=== PATIENT | female | born 1995 | race Caucasian/White ===

== ENCOUNTER 2024-10-29 15:38 | Outpatient (CLI) | payer OTHER, SELFPAY ==
[2024-10-29 15:29] LABS: Abs Immature Grans 0.02 10^3/uL (0.0-0.06); Absolute Basophil Count 0.05 10^3/uL (0.0-0.2); Absolute Eosinophil Count 0.13 10^3/uL (0.0-0.7); Absolute Lymphocyte Count 1.96 10^3/uL (1.2-3.4); Absolute Monocyte Count 0.45 10^3/uL (0.1-0.8); Absolute Neutrophil Count 5.84 10^3/uL (1.2-6.7); Basophils % 0.6 %; Eosinophils % 1.5 %; HCT 43.7 % (36.0-46.0); HGB 14.2 g/dL (11.2-15.7); Immature Grans % 0.2 %; Lymphocytes % 23.2 %; MCH 28.8 pg (27.0-33.0); MCHC 32.5 % (32.0-36.0); MCV 89 fL (80-95); MPV 9.5 fL (8.0-11.0); Monocytes % 5.3 %; Neutrophils % 69.2 %; Platelet Count 286 10^3/uL (130-400); RBC 4.93 10^6/uL (3.93-5.22); RDW 13.2 % (11.7-14.6); WBC 8.45 10^3/uL (4.4-10.8)
[2024-10-29 16:09] LABS: C-Reactive Protein < 0.50 mg/dL (<or=0.5)
== END 2024-10-29 15:39 | disposition home or self-care (01) ==
LOC: LBO 15:43
PROVIDERS: Visit Provider Nurse Practitioner Adult Health
DX: K91.850 Pouchitis (principal)
CPT/HCPCS: 36415; 85025; 86140

== ENCOUNTER 2024-11-25 04:03 | Outpatient (CLI) | payer OTHER, SELFPAY ==
[2024-11-25 10:44] LABS: ALT 55 U/L (14-59); AST 31 U/L (15-37); Albumin 3.7 g/dL (3.4-5.0); Alkaline Phosphatase 86 U/L (46-116); Bilirubin, Direct 0.2 mg/dL (0.0-0.2); Bilirubin, Total 0.6 mg/dL (0.2-1.0); Total Protein 7.2 g/dL (6.4-8.2)
[2024-11-25 10:49] LABS: C-Reactive Protein < 0.50 mg/dL (<or=0.5)
[2024-11-25 21:26] LABS: HBs Antibody, Quant 12.9 mIU/mL (See Note); Hepatitis B Surface Ab Positive (See Note)
[2024-11-25 21:39] LABS: Hepatitis B Surface Ag Negative (Negative)
[2024-11-25 22:07] LABS: Hep B Core Antibody Negative (Negative)
[2024-11-29 14:08] LABS: TB Interpretation Negative (Negative)
== END 2024-11-25 04:04 | disposition home or self-care (01) ==
PROVIDERS: Student in an Organized Health Care Education/Training Program; Visit Provider Nurse Practitioner Adult Health
DX: K51.018 Ulcerative (chronic) pancolitis with other complication (principal); K91.850 Pouchitis
CPT/HCPCS: 36415; 80076; 86704; 86706; 87340; 86140; 86480

== ENCOUNTER 2025-01-24 09:32 | Emergency (ER) | payer OTHER, SELFPAY ==
[2025-01-24 09:34] VITALS: BP 113/69; PULSE 85; RESP 16; TEMP 36.8; O2SAT 100
[2025-01-24 09:42] VITALS: BP 113/69; PULSE 85; RESP 16; TEMP 36.8; O2SAT 100
--- NOTE | 2025-01-24 10:00 | DI.CT_ITS ---
Exam(s) CT ABDOMEN PELVIS W EXAM: CT ABDOMEN PELVIS W CLINICAL HISTORY: LLQ abd pain, prior j pouch for crohns. TECHNIQUE: Imaging Protocol: Axial computed tomography images with coronal and sagittal reformatted images were created and reviewed CONTRAST MATERIAL: Intravenous: Omnipaque 350 Contrast volume:75 ml Oral: no COMPARISON: None FINDINGS: ABDOMEN and PELVIS: Lung Bases: No acute findings. Liver: Normal density. No suspicious mass. Gallbladder and biliary tract: No radiodense calculus. No wall thickening or pericholecystic fluid. No biliary dilation. Pancreas: Normal density. No abnormal calcifications or inflammatory process. No evidence of mass. Spleen: Normal. Kidneys: Normal size, contour and axis. No radiodense stones. No obstructive uropathy. No suspicious masses seen. Adrenal glands: No masses seen. Vasculature: Abdominal aorta non-dilated. Soft tissues: Unremarkable. Bladder: No gross wall thickening. No calculi.No focal mass. Bowel: Resection of the colon and J-pouch. No abnormal dilatation. No obstruction. No bowel wall thickening. No inflamed small bowel loops. Peritoneal cavity: No ascites. No focal collection. No mesenteric inflammatory response. No free air. Bones: Unremarkable for age. Reproductive organs: Unremarkable. Lymph nodes: No pathologically enlarged lymph nodes. IMPRESSION:: No acute abnormality in the abdomen or pelvis. Resection of the colon with J-pouch formation which appears unremarkable. RADIATION DOSE DELIVERED: 245.42mGy.cm Total DLP DATA REPOSITORY: All CT scans at this facility are submitted to the National Radiology Data Registry (NRDR) Dose Index Registry (DIR) with the [employer] ([employer]). RADIATION OPTIMIZATION: All CT scans at this facility use at least one of these dose optimization techniques: automated exposure control; mA and/or kV adjustment per patient size (includes targeted exams where dose is matched to clinical indication); or iterative reconstruction.
[2025-01-24 10:24] LABS: Abs Immature Grans 0.03 10^3/uL (0.0-0.06); Absolute Basophil Count 0.04 10^3/uL (0.0-0.2); Absolute Eosinophil Count 0.08 10^3/uL (0.0-0.7); Absolute Lymphocyte Count 1.28 10^3/uL (1.2-3.4); Absolute Monocyte Count 0.38 10^3/uL (0.1-0.8); Absolute Neutrophil Count 7.56 10^3/uL (1.2-6.7); Basophils % 0.4 %; Eosinophils % 0.9 %; HCT 42.9 % (36.0-46.0); HGB 14.5 g/dL (11.2-15.7); Immature Grans % 0.3 %; Lymphocytes % 13.7 %; MCH 28.9 pg (27.0-33.0); MCHC 33.8 % (32.0-36.0); MCV 86 fL (80-95); MPV 9.8 fL (8.0-11.0); Monocytes % 4.1 %; Neutrophils % 80.6 %; Platelet Count 260 10^3/uL (130-400); RBC 5.01 10^6/uL (3.93-5.22); RDW 12.9 % (11.7-14.6); RDW-SD 39.6 fL; WBC 9.37 10^3/uL (4.4-10.8)
[2025-01-24 10:26] LABS: Bilirubin Negative (Negative); Blood Moderate (Negative); Clarity Clear (Clear); Glucose Negative (Negative); Ketones 15 mg/dL (Negative); Leukocyte Esterase Trace (Negative); Nitrite Negative (Negative); Urobilinogen 0.2 mg/dL (Up to 0.2)
[2025-01-24] MEDS: Normal Saline Flush 10 ML SYR IVP (10:26)
[2025-01-24] MEDS: ACETAMINOPHEN 1,000 MG/100 ML BAG 400 MG IVPB (10:26)
[2025-01-24] MEDS: Lactated Ringers 500 ML 1000 ML IV (10:26)
[2025-01-24 10:43] LABS: ALT 53 U/L (14-59); AST 26 U/L (15-37); Albumin 4.4 g/dL (3.4-5.0); Alkaline Phosphatase 109 U/L (46-116); BUN 9 mg/dL (7-18); CREATININE 0.7 mg/dL (0.55-1.02); Calcium 9.3 mg/dL (8.5-10.1); Chloride 102 mmol/L (98-107); Estimated GFR 119.24 (mL/min/1.73m2); Glucose 93 mg/dL (74-106); Lipase 24 U/L (<78); Magnesium 1.9 mg/dL (1.8-2.4); Potassium 3.9 mmol/L (3.5-5.1); Sodium 139 mmol/L (136-145); Total Protein 8.5 g/dL (6.4-8.2)
[2025-01-24 10:49] LABS: Bacteria Few HPF (Negative); C & S Indicated? No; Casts 0-2 Hyaline LPF (Negative); Crystals Negative HPF (Negative); Epithelial Cells Moderate HPF (Negative); Mucus Heavy (Negative); RBC 0-2 HPF (0-2); WBC 0-2 HPF (0-5)
[2025-01-24] MEDS: Omnipaque 350 MG/ML 100 ML BTL 75 ML IJ (10:50)
[2025-01-24] MEDS: Normal Saline - Diluent 50 ML VIAL IJ (10:51)
--- NOTE | 2025-01-24 11:36 | W.ED.GENAD ---
Discharge Plan Disposition Patient Disposition: Home Condition: Stable Discharge Details Clinical Impression: Abdominal pain Primary Care Provider: Lizbeth,Local ED Provider: Krishan Hardwick Home Meds and New Rx's Prescriptions: Continued melatonin-pyridoxine HCl (B6) 1 EACH tablet,ext release multiphase 1 ea PO HS Qty: 30 escitalopram oxalate 10 mg tablet 10 mg PO DAILY Patient Comments: TAKE 1 TABLET BY MOUTH DAILY FOR ANXIETY ondansetron 4 mg tablet,disintegrating 4 mg PO PRN PRN omeprazole 20 mg capsule,delayed release(DR/EC) 20 mg PO DAILY Entyvio 300 mg recon soln 300 mg IV Q2W Rx Instructions: administer 2nd dose 2 weeks after first dose; administer over 30 minutes hyoscyamine 0.15 mg tablet 0.25 mg PO PRN Discontinued lorazepam 1 MG tablet 1 mg PO DAILY PRNQty: 30 trazodone 50 MG tablet 50 mg PO DAILY Qty: 90 Rx Instructions: 1 tab nightly venlafaxine [Effexor XR] 150 MG capsule,extended release 24hr 150 mg PO DAILY Qty: 90 Rx Instructions: Take 1 cap po qd ibuprofen [Advil] 200 MG tablet 600 mg PO Q6H PRN EXCEDRIN MIGRAINE TABLET 1 EACH tablet 2 ea PO PRN Discharge Instructions Instructions: Crohn disease in adults, Abdominal Pain, Adult ED Additional Instructions: Maintain a clear liquid diet today. Advance your diet tonight to bland soft foods like rice. Tomorrow you may advance your diet further as tolerated. Please follow-up with your primary care physician and GI specialist. Call today to arrange timely follow-up. Return to the emergency department immediately for any worsening or new concerning symptoms. HPI General Mode of arrival: ambulatory. Date/Time Provider Initiated Documentation: 01/24/25 09:39. Limitations to Documentation: no limitations. Information obtained by: patient. HPI Narrative: HISTORY OF PRESENT ILLNESS The patient presents for evaluation of severe abdominal pain with sweating and vomiting. The pain, described as a dull ache, has been present for several days but intensified today. Vomiting did not alleviate her discomfort. She likens the pain to a previous episode of appendicitis. She underwent a colectomy in 2011 due to Crohn's disease and started infusion therapy last Friday. Currently, the dull pain radiates to her back. No urinary symptoms, including burning or hematuria. Related Data Home Medications ?Medication ?Instructions ?Recorded ?Confirmed melatonin ER 10 mg-pyridoxine HCl 1 ea PO HS ##30 09/30/12 01/24/25 (B6) 10 mg tab, immed-extend release escitalopram oxalate 10 mg tablet 10 mg PO DAILY 01/24/25 01/24/25 hyoscyamine 0.15 mg tablet 0.25 mg PO PRN 01/24/25 01/24/25 omeprazole 20 mg capsule,delayed 20 mg PO DAILY 01/24/25 01/24/25 release ondansetron 4 mg disintegrating 4 mg PO PRN PRN 01/24/25 01/24/25 tablet vedolizumab 300 mg intravenous 300 mg IV Q2W 01/24/25 01/24/25 solution (Entyvio) Allergies Allergy/AdvReac Type Severity Reaction Status Date / Time cephalexin (Cephalexin) Allergy Severe tongue Unverified 01/24/25 09:38 swells infliximab (From Remicade) Allergy Severe Anaphylaxis Unverified 01/24/25 09:38 General Stated Complaint: Abd Prob SADI: 3 Review of Systems All systems reviewed & are unremarkable except as noted in HPI and below Constitutional Constitutional: Denies fever(s) Gastrointestinal Gastrointestinal: Reports as per HPI, Reports abdominal pain, Reports vomiting and Denies hematemesis Genitourinary Genitourinary: Denies hematuria, Denies difficulty voiding, Denies dysuria and Denies vaginal discharge Exam Const General: cooperative and no acute distress [facility] Mouth: moist mucous membranes Eyes Conjunctivae: normal conjunctivae Sclera: normal sclerae Resp Auscultation: clear to auscultation bilaterally, no rales, no rhonchi and no wheezes Cardio Rate: regular rate and not tachycardic Rhythm: regular rhythm GI Inspection: non-distended Palpation: soft, not firm, no guarding, no masses, not rigid and tender in the LLQ and with rebound tenderness Auscultation: normal bowel sounds Skin General skin exam: no rashes or lesions noted Neuro General: patient alert, patient awake and tone normal Extrem General: no edema Course Vital Signs Vital signs: Vital Signs Temperature 36.8 C 01/24/25 09:34 Pulse 85 01/24/25 09:34 Respiratory Rate 16 01/24/25 09:34 Blood Pressure 113/69 01/24/25 09:34 Pulse Oximetry 100 01/24/25 09:34 Temperature 36.8 C 01/24/25 09:42 Temperature Source Tympanic 01/24/25 09:42 Pulse 85 01/24/25 09:42 Respiratory Rate 16 01/24/25 09:42 Blood Pressure 113/69 01/24/25 09:42 Pulse Oximetry 100 01/24/25 09:42 Lab/Test Results Lab/Test Results: Laboratory Tests Range/Units 01/24/25 01/24/25 10:12 10:15 WBC (4.4-10.8) 10^3/uL 9.37 RBC (3.93-5.22) 10^6/uL 5.01 Hgb (11.2-15.7) g/dL 14.5 Hct (36.0-46.0) % 42.9 MCV (80-95) fL 86 MCH (27.0-33.0) pg 28.9 MCHC (32.0-36.0) % 33.8 RDW (11.7-14.6) % 12.9 Plt Count (130-400) 10^3/uL 260 MPV (8.0-11.0) fL 9.8 Immature Gran % % 0.3 Neutrophils % % 80.6 Lymphocytes % % 13.7 Monocytes % % 4.1 Eosinophils % % 0.9 Basophils % % 0.4 Nucleated RBC % (0.0-0.3) % 0.0 Absolute Neutrophils (1.2-6.7) 10^3/uL 7.56 H Absolute Lymphocytes (1.2-3.4) 10^3/uL 1.28 Absolute Monocytes (0.1-0.8) 10^3/uL 0.38 Absolute Eosinophils (0.0-0.7) 10^3/uL 0.08 Absolute Basophils (0.0-0.2) 10^3/uL 0.04 Sodium (136-145) mmol/L 139 Potassium (3.5-5.1) mmol/L 3.9 Chloride (98-107) mmol/L 102 Carbon Dioxide (21.0-32.0) mmol/L 27.0 Anion Gap (3-11) mmol/L 10.0 BUN (7-18) mg/dL 9 Creatinine (0.55-1.02) mg/dL 0.7 Est GFR (CKD-EPI 2021) (mL/min/1.73m2) 119.24 Glucose (74-106) mg/dL 93 Calcium (8.5-10.1) mg/dL 9.3 Magnesium (1.8-2.4) mg/dL 1.9 Total Bilirubin (0.2-1.0) mg/dL 1.0 AST (15-37) U/L 26 ALT (14-59) U/L 53 Alkaline Phosphatase (46-116) U/L 109 Total Protein (6.4-8.2) g/dL 8.5 H Albumin (3.4-5.0) g/dL 4.4 Lipase (<78) U/L 24 Urine Color (Yellow) Yellow Urine Clarity (Clear) Clear Urine pH (5-8) 6.0 Ur Specific [place] (1.005-1.025) 1.020 Urine Protein (Neg-Trace) mg/dL Trace Urine Ketones (Negative) mg/dL 15 H Urine Blood (Negative) Moderate H Urine Nitrite (Negative) Negative Urine Bilirubin (Negative) Negative Urine Urobilinogen (Up to 0.2) mg/dL 0.2 Ur Leukocyte Esterase (Negative) Trace H Urine RBC (0-2) HPF 0-2 Urine WBC (0-5) HPF 0-2 Ur Epithelial Cells (Negative) HPF Moderate Urine Crystals (Negative) HPF Negative Urine Bacteria (Negative) HPF Few Urine Casts (Negative) LPF 0-2 Hyaline Urine Mucus (Negative) Heavy Ur Culture Indicated? No Urine Glucose (Negative) mg/dL Negative POC- Test(urine) Negative Medical Decision Making ASSESSMENT AND PLAN Initial Assessment: Severe abdominal pain with sweating and vomiting, worsened today. Dull ache radiating to the back. History of colectomy due to Crohn's disease in 2011. Recently started infusion therapy. Physical exam shows focal tenderness in the left lower quadrant with rebound. Presentation is not consistent with ovarian etiology. Differential Diagnosis: - Acute intra-abdominal surgical pathology: History of colectomy, severe pain, vomiting. Plan: CT abdomen/pelvis. - Crohn's disease flare-up: History of Crohn's disease, recent infusion. Plan: Monitor symptoms, consider further evaluation if CT negative. ED Course: - Physical exam: Focal tenderness in the left lower quadrant with rebound, normal heart sounds, lungs clear. - Ordered CT abdomen/pelvis. - Administered acetaminophen 1 g IV. - Administered IV fluids. - CT scan of the abdomen pelvis interpreted by radiology: IMPRESSION:: No acute abnormality in the abdomen or pelvis. Resection of the colon with J-pouch formation which appears unremarkable. - Patient reassessed: Feeling much better after Tylenol, ambulating to bathroom without any difficulty. Abdominal exam benign. - All results were discussed with the patient including limitations. She understands importance of timely follow-up and to return for any worsening or new concerning symptoms. Final Assessment: S 29-year-old female with history of Crohn's status post partial colectomy with J-pouch, here with severe abdominal pain. CT negative for acute intra-abdominal surgical pathology. Pain improved with Tylenol. Plan for discharge with close outpatient follow-up with GI specialist. Patient was encouraged to return immediately for any worsening pain or new concerning symptoms. Clinical Impression: - Acute abdominal pain - Crohn's disease flare-up This document was written with the assistance of ANYA Dyer. The patient consented to its use. PFSH All Active Problems (Updated 01/24/25 @ 11:42 by Krishan Hardwick MD) Abdominal pain (Acute) Surgical History colectomy Appendectomy (10/28/07) Social History Smoking/Tobacco Use Status: Never Smoking risk assessment performed?: Yes Alcohol Intake: never Drug use: Never Substance use type: does not use Do you feel safe at home: Yes Do you feel safe in your relationship?: Yes
[2025-01-24 11:53] VITALS: BP 101/61; PULSE 51; RESP 20; TEMP 37.2; O2SAT 100
== END 2025-01-24 12:02 | disposition home or self-care (01) ==
PROVIDERS: Emergency Provider Student in an Organized Health Care Education/Training Program
DX: R10.9 Unspecified abdominal pain (principal); K50.90 Crohn's disease, unspecified, without complications
CPT/HCPCS: 36415; 80053; 81025; 83690; 96361; 96374; 99285; 74177; 81003; 81015; 83735; 85025; 99284; J0131; J3490